=== PATIENT | male | born 1965 | race Caucasian/White ===

== ENCOUNTER 2019-06-21 09:34 | Outpatient (CLI) | payer MEDICARE ==
--- NOTE | 2019-06-21 10:22 | ULT ---
US Renal Bilateral STANDARD: 06/21/2019 9:37 AM CLINICAL HISTORY: Chronic kidney disease. STUDY: Renal ultrasound COMPARISON: None. FINDINGS: Right kidney: Echogenicity: Normal. Masses/cysts: 5.8 cm cyst Hydronephrosis: None. Calcifications: None. Length: 9.4 cm Left kidney: Echogenicity: Normal. Masses/cysts: None. Hydronephrosis: None. Calcifications: None. Length: 10.5 cm Limited visualization of the urinary bladder is unremarkable. IMPRESSION: Right renal cyst
== END 2019-06-21 09:35 | disposition home or self-care (01) ==
LOC: MADULT 09:34
PROVIDERS: ATTEND Internal Medicine Nephrology
DX: N18.4 Chronic kidney disease, stage 4 (severe) (principal); N28.1 Cyst of kidney, acquired
CPT/HCPCS: 76770